=== PATIENT | female | born 1990 | race Caucasian/White ===

== ENCOUNTER 2024-06-14 10:30 | Outpatient (AMB) | payer OTHER, SELFPAY ==
--- NOTE | 2024-06-14 10:43 | A.OFFPC_ITS ---
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 Required: No Is last menstrual period known: No Allergies amoxicillin [From Augmentin] Allergy (Unknown, Verified 06/14/24 10:45) Rash cefaclor Allergy (Unknown, Verified 06/14/24 10:45) Nausea and Vomiting clavulanic acid [From Augmentin] Allergy (Unknown, Verified 06/14/24 10:45) Rash Medication List - Last Reconciled 06/14/24 by Joy Torres PA-C lamotrigine 200 mg PO QAM lithium carbonate 600 mg PO BEDTIME propranolol 20 - 40 mg PO Tobacco use date assessed: 06/14/24 Dental Screening Dental Screen Date: 06/14/24 Did you have a dental visit in the last 12 months?: No Did you have a dental problem in the last 6 months where you did not have access to dental care?: No Was dental information given to patient?: Patient has dentist 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 She is transferring from [place]. She reports a history of hypertension, bipolar, hx of migraines, chronic sinusitis, seasonal allergies, and asthma. She will be fostering her niece. Her niece is 6 years old and her mother is a drug addict and alcoholic. This has been somewhat stressful for the family but overall exciting and happy that they are able to help her. Patient states that she has a 7-year-old son in a 9-year-old son. CV: Blood pressure today in the office is 98/68. Psych: follows with Dena Mcnamara and is on propranolol, Lamotrigine and lithium. She states that she can't get ahold of her psychiatrist this past month. She has been on this treatment plan for 4 years. She needs refills and is almost out of her meds. No SI/HI. Denies any hospitalizations related to mental health. 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 Fam hx: sister celiac disease and bipolar, paternal grandmother ovarian ca in her 80s, father had lung ca at 52 (smoker) [facility] Medical History (Updated 06/14/24 @ 11:06 by Caty Zeng CMA) HTN (hypertension) Snoring Overweight (BMI 25.0-29.9) Nasal inflammation due to allergen Chronic sinus infection Anxiety Hx of urinary stone Sinus headache Migraines Social History (Updated 06/14/24 @ 10:49 by Caty Zeng CMA) Housing: House Patient Tobacco Use Status: Never used Tobacco e-Cigarette/Vaping Use: Never Used Second Hand Smoke Exposure: No Use of substances other than those prescribed or required for medical reasons: Yes Substance Use Type: Marijuana service: No Current occupational status: employed 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 1. Little interest or pleasure in doing things: not at all 2. Feeling down, depressed, or hopeless: several days 3. Trouble falling or staying asleep, or sleeping too much: more than half the days 4. Feeling tired or having little energy: not at all 5. Poor appetite or overeating: not at all 6. Feeling bad about yourself - or that you are a failure or have let yourself or your family down: not at all 7. Trouble concentrating on things, such as reading the newspaper or watching television: not at all 8. Moving or speaking so slowly that other people could have noticed. Or the opposite - being so fidgety or restless that you have been moving around a lot more than usual: not at all 9. Thoughts that you would be better off or of hurting yourself in some way: not at all Total score: 3 Depression Screening Done: Yes 47771 - PHQ-9 Billing: Yes Source: Developed by Drs. Roland Vargas, Maranda Martinez, Young Acosta and colleagues, with an educational emelia from [employer]. Thrive Questionnaire Date Thrive assessed: 06/14/24 I am a: Patient What is your living situation today?: I have a steady place to live Within the past 12 months, did the food you bought not last and you didn't have the money to get more?: Never true Within the past 12 months, did you worry whether your food would run out before you got money to buy more?: Never true Do you have trouble paying for medicines?: No Do you have trouble getting transportation to medical appointments?: No Do you have trouble paying your heating and electricity bill?: No Do you have trouble taking care of your child, family member or friend?: No Do you have trouble with day-to-day activities such as bathing, preparing meals, shopping, managing finances, etc.?: No Are you currently unemployed and looking for a job?: No Are you interested in more education?: No Please select the resources that you would like help with: None Currently or been in a relationship where the following occur: No concerns reported THRIVE Score: 0 AUDIT C Alcohol Use Questionnaire (AUDIT-C) 2. How many drinks containing alcohol do you have on a typical day when you are drinking?: 1 or 2 3. How often do you have six or more drinks on one occasion?: Never Total Score: 0 JANET-7 AMB Questionnaire JANET-7 Date JANET - 7 assessed: 06/14/24 Feeling nervous, anxious, or on edge: 2 = More than half the days Not being able to stop or control worryin = Not at all Worrying too much about different things: 1 = Several days Trouble relaxin = Several days Being so restless that it is hard to sit still: 0 = Not at all Becoming easily annoyed or irritable: 1 = Several days Feeling afraid as if something awful might happen: 0 = Not at all Total JANET-7 score (0-4 normal; 5-9 mild; 10-14 moderate; 15-21 severe): 5 Source: Developed by Drs. Roland Vargas, Maranda Martinez, Young Acosta and colleagues, with an educational emelia from [employer]. JANET-7 Assessment Billing JANET-7 Assessment Tool: JANET-7 Assessment 87955 Physical exam (Primary Care) Vital Signs: Last Vital Signs Temp 98.2 F 06/14/24 11:04 Pulse 60 06/14/24 11:04 Resp 12 06/14/24 11:04 BP 98/60 06/14/24 11:04 Pulse Ox 98 06/14/24 11:04 Oxygen Delivery Method Room Air 06/14/24 11:04 BMI result Body Mass Index 29.0 Tobacco/Smoking Status: Tobacco use Status Tobacco use date assessed 06/14/24 06/14/24 11:02 Patient Tobacco Use Status Never used Tobacco 06/14/24 11:02 e-Cigarette/Vaping Use Never Used 06/14/24 11:02 Currently or been in a relationship where the following occur: No concerns reported Const Orientation/consciousness: patient oriented x3 HENMT Ears: hearing grossly normal bilaterally Neck Thyroid: Thyroid normal Lymphatic: no lymphadenopathy noted Resp Auscultation: clear to auscultation bilaterally Cardio Rate: regular rate Rhythm: regular rhythm Heart sounds: S1 normal heart sound present and S2 normal heart sound present GI Inspection: Yes normal to inspection Palpation (GI): Soft to palpation and Other GI palpation findings present (nontender, no cva tenderness) Auscultation: normoactive bowel sounds Rectal Exam - Female: deferred Skin General skin exam: no rashes or lesions noted Neuro General: patient oriented x3, gait normal and no focal motor deficits Assessment and Plan Assessment & Plan (1) Bipolar II disorder, mild, depressed, with mixed features, in partial remission: Code(s): F31.81 - Bipolar II disorder Plan: Overall well-controlled. I did offer a one-month refill as she has been unable to reach her psych provider and did show evidence of this today. She states that her psych provider has done this at other points and she if she is on vacation. She we will otherwise find a new provider. She understands that we do not prescribe this. [place] level ordered as she has not had this checked in 2 years. (2) Hypertension: Code(s): I10 - Essential (primary) hypertension Plan: WNL. Continue current regimen. Labs ordered today. Follow up in a few months for a physical. Sooner if needed. Patient understands and agrees with the plan. Orders: Orders Comprehensive [place]. 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
[2024-06-14 11:04] VITALS: BP 98/60; PULSE 60; RESP 12; TEMP 36.8; O2SAT 98; BMI 29.0
== END 2024-06-14 11:23 | disposition home or self-care (01) ==
PROVIDERS: PCP Physician Assistant; Visit Provider Physician Assistant
DX: F31.81 Bipolar II disorder (principal); I10 Essential (primary) hypertension
CPT/HCPCS: 96127; 99203

== ENCOUNTER 2024-08-20 09:57 | Outpatient (REF) | payer OTHER, SELFPAY ==
[2024-08-20 11:38] LABS: MANUAL DIFF FLAG NO
[2024-08-20 11:47] LABS: Basophils Percent Auto 0.3 % (0-2); Eosinophils Absolute Auto 0.2 X10*3/uL (0.0-0.4); Eosinophils Percent Auto 2.3 % (0-4); Hematocrit 38.9 % (37.0-47.0); Hemoglobin 13.4 g/dl (12.0-16.0); Imm Gran Abs Auto 0.02 X10*3/uL (0.00-0.03); Imm Gran Pct Auto 0.3 % (0.0-0.4); Lymphocytes Absolute Auto 1.6 X10*3/uL (1.2-4.9); Lymphocytes Percent Auto 20.8 % (20-40); Mean Corpuscular HGB Conc 34.4 g/dl (31.0-35.0); Mean Corpuscular Hemoglobin 32.2 pg (27.0-33.0); Mean Corpuscular Volume 93.5 fL (80.0-98.0); Mean Platelet Volume 8.7 fL (9.4-12.3); Monocytes Absolute Auto 0.6 X10*3/uL (0.1-1.2); Neutrophils Absolute Auto 5.3 x10*3/uL (2.0-8.3); Neutrophils Percent Auto 68.3 % (45-73); Platelet Count 193 X10*3/uL (160-400); Red Blood Count 4.16 X10*6/uL (4.20-5.50); Red Cell Distribution Width 11.9 % (11.0-16.0); White Blood Count 7.7 X10*3/uL (4.8-10.8)
[2024-08-20 12:35] LABS: Lithium 0.43 mmol/L (0.60-1.20)
[2024-08-20 12:43] LABS: Alanine Aminotransferase 14 U/L (0-31); Albumin Level 4.4 g/dL (3.5-5.0); Alkaline Phosphatase 53 U/L (39-117); Anion Gap 8 (12-20); Aspartate Amino Transferase 25 U/L (5-31); Bilirubin Total 0.9 mg/dL (0.0-1.0); Blood Urea Nitrogen 8 mg/dL (9-16); Calcium 9.6 mg/dL (8.4-10.2); Carbon Dioxide 28 mmol/L (22-29); Chloride 108 mmol/L (96-108); Cholesterol 165 mg/dL (<200); Estimated Glomerular Filt Rate > 60; Glucose Fasting 93 mg/dL (60-99); HDL Cholesterol 50 mg/dL (>40); LDL Cholesterol Calculated 97 mg/dL (<100); Potassium 3.9 mmol/L (3.3-5.1); Sodium 140 mmol/L (135-145); Total Protein 6.9 g/dL (6.5-8.0); Triglycerides 90 mg/dL (<150)
[2024-08-20 12:50] LABS: TSH reflex Free T4 1.31 uIU/mL (0.32-4.0)
== END 2024-08-20 09:58 | disposition home or self-care (01) ==
LOC: HO.WFDLDS 09:57
PROVIDERS: Visit Provider Physician Assistant
DX: I10 Essential (primary) hypertension (principal); F31.81 Bipolar II disorder
CPT/HCPCS: 36415; 80053; 80061; 80178; 84443; 85025

== ENCOUNTER 2024-11-01 11:32 | Outpatient (REF) | payer BC, SELFPAY ==
[2024-11-01 14:46] LABS: Influenza A PCR NEGATIVE (Negative); Influenza B PCR NEGATIVE (Negative); Resp Syncy Virus RNA Qual PCR NEGATIVE (Negative); SARS COV2 PCR INHOUSE NEGATIVE (Negative)
== END 2024-11-01 11:33 | disposition home or self-care (01) ==
LOC: HO.LNP 11:32
PROVIDERS: PCP Physician Assistant; Visit Provider Physician Assistant Medical
DX: R05.1 Acute cough (principal); R09.89 Other specified symptoms and signs involving the circulatory and respiratory systems
CPT/HCPCS: 0241U

== ENCOUNTER 2024-11-01 11:32 | Outpatient (AMB) | payer BC, SELFPAY ==
--- NOTE | 2024-11-01 11:34 | MHC.OFFWIV ---
Intake Vital Signs 11/01/24 11:38 Height 4 ft 9.48 in Weight 133 lb BMI 28.3 BP 136/78 Blood Pressure Location Lt brachial Position Sitting Respiration 14 Pulse 78 Pulse Source Pulse Oximeter Pulse Oximetry (%) 96 Oxygen Delivery Method Room Air Intake Visit Reasons: shortness of breath, headache, back pain Intake Note: Patient complaining of runny nose, sneezing, coughing since Tuesday. Patient son got dx with walking pneumonia last Tuesday. 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 She developed symptoms on 10/26/2024. Symptoms started with a runny nose and sneezing. She then developed a cough productive of clear sputum on Tuesday. Symptoms worsened on Tuesday. She has intermittent wheezing which feels a little better today. Cough wakes her up at night. She denies chest pain but has pain in her back and ribs when she coughs. She endorses chills but no fevers. Her appetite is decreased, but she is still eating and drinking. No body aches. Nose is runny but no sinus pain. She tried Mucinex, Vicks shower tablets. She has not had any significant relief. Her son has walking pneumonia ROS: Constitutional: +fatigue and chills. No fevers. Eyes: No vision changes, blurry vision, double vision, eye pain, eye redness, eye discharge. ENT: No hearing loss, ear pain, sore throat or sinus pain. No purulent nasal discharge. Respiratory: No hemoptysis. See HPI Cardiovascular: No chest pain, palpitations or pedal edema. Gastrointestinal: No anorexia, nausea, vomiting or diarrhea. No abdominal pain or blood in stool. Physical exam: Constitutional: Alert, in no distress. Head: Normocephalic. Eyes: Pupils are equal, round and reactive to light. Extraocular muscles intact. Ear, Nose and Throat:. TMs normal. Sinuses nontender. Nasal mucosa erythematous.. Throat cobblestone. No oral lesions or exudates. Neck: Supple, Full range of motion. No lymphadenopathy. Respiratory: Clear to auscultation. Cardiovascular: S1 S2 regular. No murmurs. Extremities: Warm and well perfused. No clubbing, cyanosis or edema. 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 She will have a stat chest x-ray done at [facility] in [place]. Ordered Tessalon Perles 100 mg 3 times daily as needed for cough. Take albuterol 2 puffs every 4 hours as needed for cough, wheezing or shortness of breath. Patient endorses allergy to Augmentin and cefaclor. Patient says doxycycline causes nausea and vomiting. Sent azithromycin. Side effects and administration reviewed. Warning signs warranting ER evaluation and follow up reviewed. Letter provided for work. Orders: Orders XR chest 2V Today R05.9 - Cough, unspecified SARS-CoV2/FLU/RSV Today R09.89 - Other specified symptoms and signs involving the circulatory and respiratory systems Medications: New albuterol sulfate 90 mcg/actuation 2 inhalations inhalation .every 4 hours 30 days PRN 8.5 grams 0RF shortness of breath or wheezing benzonatate 100 mg PO TID PRN 30 caps 0RF cough azithromycin For 250 mg dose pack: take 500 mg today (day 1), then 250 mg for 4 days (days 2-5) PO 6 tabs 0RF benzonatate 100 mg PO TID PRN 30 caps 0RF cough azithromycin For 250 mg dose pack: take 500 mg today (day 1), then 250 mg for 4 days (days 2-5) PO 6 tabs 0RF albuterol sulfate 90 mcg/actuation 2 inhalations inhalation .every 4 hours PRN 8.5 grams 0RF shortness of breath or wheezing 30 days Coding Level of Care Code Est Pt Level 4 (67390) Diagnoses Cough R05.9
[2024-11-01 11:38] VITALS: BP 136/78; PULSE 78; RESP 14; O2SAT 96; BMI 28.3
== END 2024-11-01 13:25 | disposition home or self-care (01) ==
PROVIDERS: PCP Physician Assistant; Visit Provider Physician Assistant Medical
DX: R05.9 Cough, unspecified (principal)

== ENCOUNTER 2024-11-01 13:59 | Outpatient (REF) | payer BC, SELFPAY ==
--- NOTE | ~2024-11-01 | XR_ITS ---
EXAMINATION: XR CHEST CLINICAL INFORMATION: R05.9 - Cough, unspecified COMPARISON: None available. TECHNIQUE: 2 views of the chest were obtained. FINDINGS: Lungs are well-expanded without acute pneumonic process. The heart size and pulmonary vascularity is normal. There is mild S-shaped scoliosis of dorsal spine. No aggressive lytic or sclerotic process seen. XR/XR chest 2V IMPRESSION: Unremarkable chest exam Electronically signed by: Matthew Dalal MD 11/01/2024 04:55 PM EST
== END 2024-11-01 14:00 | disposition home or self-care (01) ==
LOC: HO.XRAY 13:59
PROVIDERS: PCP Physician Assistant; Visit Provider Physician Assistant Medical
DX: R05.9 Cough, unspecified (principal)
CPT/HCPCS: 71046

== ENCOUNTER → 2024-11-01 14:10 | Outpatient (BNV) | payer BC, SELFPAY | PROVIDERS: PCP Physician Assistant; Visit Provider Radiology Diagnostic Radiology | DX: R05.9 Cough, unspecified (principal) | CPT/HCPCS: 71046 ==